=== PATIENT | male | born 1970 | race African-American/Black ===

== ENCOUNTER 2016-11-14 09:10 | Emergency (ER) | payer OTHER, MEDICAID ==
[~2016-11-14] VITALS: Ht 175.3 cm; Wt 86.2 kg
[~2016-11-14 09:10] MED LIST: AMOX875T PO; CORTIS10A RIGHT EAR
[2016-11-14 09:12] VITALS: BP 149/90; PULSE 70; RESP 20; TEMP 97.8; O2SAT 98
[2016-11-14] MEDS ORDERED: ULTR50TA5 PO (09:21)
[2016-11-14] MEDS ORDERED: AUGM875T3 PO (09:21)
--- NOTE | 2016-11-14 09:28 | PD ---
HPI Chief Complaint: ENT Complaint Time Seen by Provider: 09:18 Travel History International Travel<30 days: No Contact w/Intl Traveler<30days: No Traveled to known affect area: No History of Present Illness HPI c/o 2 day of left ear pain, 09/11, nonrad, no drainage/fever/dobson/n/v/cp/ abdpain....no aggravating/alleviating factors. PFSH Social History Alcohol Use: Yes Tobacco Use: No Substance Use: No Allergies-Medications (Allergen,Severity, Reaction): Coded Allergies: No Known Allergies (Verified , 11/14/16) Reported Meds & Prescriptions Reported Meds & Active Scripts Active Ultram (Tramadol HCl) 50 Mg Tab 50 Mg PO Q4H PRN Augmentin (Amoxicillin-Clavulanate) 875-125 Mg Tab 1 Tab PO BID Review of Systems Except as stated in HPI: all other systems reviewed are Neg HENT: Positive: Earache Physical Exam Narrative GENERAL: SKIN: Warm and dry. HEAD: Atraumatic. Normocephalic. EYES: Pupils equal and round. No scleral icterus. No injection or drainage. ENT: No nasal bleeding or discharge. Mucous membranes pink and moist. left eac erythematous/no drainage, tm erythematous/bulging/ but not perforated NECK: Trachea midline. No JVD. CARDIOVASCULAR: Regular rate and rhythm. RESPIRATORY: No accessory muscle use. Clear to auscultation. Breath sounds equal bilaterally. GASTROINTESTINAL: Abdomen soft, non-tender, nondistended. Hepatic and splenic margins not palpable. MUSCULOSKELETAL: Extremities without clubbing, cyanosis, or edema. No obvious deformities. NEUROLOGICAL: Awake and alert. No obvious cranial nerve deficits. Motor grossly within normal limits. Five out of 5 muscle strength in the arms and legs. Normal speech. PSYCHIATRIC: Appropriate mood and affect; insight and judgment normal. Data Data Last Documented VS Vital Signs Date Time Temp Pulse Resp B/P Pulse Ox O2 Delivery O2 Flow Rate FiO2 11/14/16 09:12 97.8 70 20 149/90 98 Room Air MDM Medical Decision Making Medical Screen Exam Complete: Yes Emergency Medical Condition: Yes Medical Record Reviewed: Yes Differential Diagnosis om v oe v fb Narrative Course ON PHYSICAL EXAMINATION FOUND TO HAVE OE WITH OM, WILL D/C ON PO ABX Diagnosis Primary Impression: Acute otitis externa of left ear Qualified Code: H60.332 - Acute swimmer's ear of left side Additional Impression: acute left otitis media Patient Instructions: General Instructions, Otitis Externa (ED), Otitis Media ( ED) Scripts Tramadol (Ultram)50 Mg Tab50 Mg PO Q4H PRN (PAIN) #28 TAB Prov:Trevor Huggins MD 11/14/16 Amoxicillin-Clavulanate (Augmentin)875-125 Mg Tab1 Tab PO BID #20 TAB Prov:Trevor Huggins MD 11/14/16 Disposition: 01 DISCHARGE HOME Condition: Stable Trevor Huggins MD Nov 14, 2016 09:28
== END 2016-11-14 09:36 | disposition home or self-care (01) ==
LOC: NEPD 09:10
DX: H60.332 Swimmer's ear, left ear (principal)
CPT/HCPCS: 99284